=== PATIENT | male | born 1985 | race Two or more races ===

== ENCOUNTER 2017-11-16 06:37 | Emergency (ER) | payer MEDICAID ==
[~2017-11-16] VITALS: Ht 172.7 cm; Wt 83.9 kg
[2017-11-16 06:37] VITALS: BP 135/71
== END 2017-11-16 07:33 | disposition home or self-care (01) ==
LOC: ER 06:38
DX: K08.89 Other specified disorders of teeth and supporting structures (principal)
CPT/HCPCS: A4606; Z7610